=== PATIENT | male | born 1985 | race Caucasian/White ===

== ENCOUNTER 2020-10-15 06:03 | Emergency (ER) | payer OTHER, SELFPAY ==
--- NOTE | ~2020-10-15 | XR_ITS ---
EXAMINATION: XR abdomen/kub 1V DATE: 10/15/2020 07:22 INDICATION: Right flank pain. TECHNIQUE: A supine view of the abdomen on 2 radiographs was obtained. COMPARISON: CT abdomen and pelvis 10/15/2020 FINDINGS: There are no dilated loops of bowel. There is a 2 mm stone in right kidney. There is a 6 mm stone in proximal right ureter. IMPRESSION: 1. 6 mm stone in proximal right ureter. 2. 2 mm stone in right kidney. Reviewed, dictated and finalized at location A. F STRATEGY OFFICER
--- NOTE | ~2020-10-15 | CT_ITS ---
EXAMINATION: CT abdomen pelvis wo con DATE: 10/15/2020 07:16 INDICATION: Flank pain. TECHNIQUE: Computed tomography (CT) of the abdomen and pelvis was performed without intravenous contr ast. Automated exposure control and iterative reconstruction technique were employed. The dose-length product was 1436.19 mGy-cm. COMPARISON: CT abdomen and pelvis 08/13/2014 FINDINGS: The visualized portions of the lung bases demonstrate minimal atelectasis. No pleural effus ion. The heart size is normal. No pericardial effusion. There is diffuse hepatic steatosis. The gallb ladder, spleen, pancreas, adrenal glands, and left kidney are normal. There is a 2 mm stone in right kidney. There is moderate hydronephrosis. There is a 6 mm stone in proximal right ureter. There are n o dilated loops of bowel. There is diverticulosis of the colon without evidence of diverticulitis. Th e appendix is normal. There are no pathologically enlarged lymph nodes. There is no free intraperiton eal fluid. There is a small supraumbilical ventral hernia containing fat. There is a small umbilical hernia containing fat. There is mild thoracal lumbar spondylosis. Lumbar dextrocurvature is noted. IMPRESSION: 1. 6 mm stone in proximal right ureter with mild right hydronephrosis. 2. 2 mm nonobstructing right kidney stone. 3. Diffuse hepatic steatosis. 4. Small umbilical and supraumbilical ventral hernias containing fat. Reviewed, dictated and finalized at location A. OGY PROFESSOR
[2020-10-15 06:07] VITALS: BP 159/113; PULSE 80; RESP 18; TEMP 36.1; O2SAT 99
[2020-10-15 06:38] LABS: Basophils Absolute Auto 0.1 K/mm3 (0.0-0.1); Basophils Percent Auto 0.7 % (0.2-1.2); Eosinophils Absolute Auto 0.1 K/mm3 (0-0.3); Eosinophils Percent Auto 0.9 % (0-4.4); Hematocrit 44.2 % (42.0-52.0); Hemoglobin 14.9 g/dL (14.0-18.0); Immature Granulocyte Absolute 0.04 K/mm3 (0.00-0.031); Immature Granulocyte Percent A 0.4 % (0-0.5); Lymphocytes Absolute Auto 2.95 K/mm3 (0.9-3.2); Lymphocytes Percent Auto 29.6 % (18.3-44.2); Mean Corpuscular HGB Conc 33.7 g/dl (32-36); Mean Corpuscular Hemoglobin 29.5 pg (26-34); Mean Corpuscular Volume 87.5 fl (80-100); Mean Platelet Volume 9.5 fl (7.4-10.4); Monocytes Absolute Auto 0.5 K/mm3 (0.1-0.6); Monocytes Percent Auto 5.1 % (2.6-8.5); Neutrophils Absolute Auto 6.3 K/mm3 (1.3-6.7); Neutrophils Percent Auto 63.3 % (45.5-73.1); Platelet Count Result 370 k/mm3 (150-375); Red Blood Count 5.05 M/mm3 (4.6-6.20); Red Cell Distribution Width 12.5 % (11.5-14.5)
--- NOTE | 2020-10-15 06:45 | ED.GENADULT ---
HPI - General Adult General Chief complaint: Urogenital-Male <Yoav Toribio MD - Last Filed: 10/15/20 06:55> Stated complaint: kidney stone <Yoav Toribio MD - Last Filed: 10/15/20 06:55> Time Seen by Provider: 10/15/20 06:44 <Yoav Toribio MD - Last Filed: 10/15/20 06:55> History of Present Illness HPI narrative: Patient is a 35-year-old gentleman who presents the emergency department with chief complaint of flank pain. The patient states that last night he started having aching in the right flank area states it radiates around to his right groin area. The patient states he had kidney stones before in the past and this feels fairly similar to that he attempted taking some ibuprofen and states he had significant relief of the discomfort with that but noticed he started having some hematuria and his was concerned that he may be a little jaundice and he decided to come to the emergency department for further evaluation. Patient reports he has some mild nausea with this but has not actually vomited reports the pain has significantly improved since he is arrived to the emergency department. <Yoav Toribio MD - Last Filed: 10/15/20 06:55> Related Data Allergies/adverse reactions: Allergies Allergy/AdvReac Type Severity Reaction Status Date / Time hydrocodone Allergy Mild Itching Verified 03/30/19 12:06 <Yoav Toribio MD - Last Filed: 10/15/20 06:55> Review of Systems Review of Systems: Narrative: A 10 system review of systems was completed on the patient and is negative except for what is stated in the HPI. Nursing and ancillary documentation was reviewed. <Yoav Toribio MD - Last Filed: 10/15/20 06:55> PMFSH Past Medical History Medical History: Medical History (Updated 10/15/20 @ 09:02 by Maryann Cornejo MD) Kidney stone <Yoav Toribio MD - Last Filed: 10/15/20 06:55> Surgical History Surgical History: Surgical History (Updated 10/15/20 @ 07:53 by Maryann Cornejo MD) H/O inguinal hernia repair <Yoav Toribio MD - Last Filed: 10/15/20 06:55> Family History Family History: Family History (Updated 03/18/19 @ 13:07 by DOCTOR UNKNOWN) Other Hypertension <Yoav Toribio MD - Last Filed: 10/15/20 06:55> Social History Social History: Social History Smoking status: Current every day smoker Alcohol intake: current <Yoav Toribio MD - Last Filed: 10/15/20 06:55> Comments Past medical history is significant for anxiety past surgical history significant for a inguinal hernia repair with mesh <Yoav Toribio MD - Last Filed: 10/15/20 06:55> Exam Narrative: Exam Narrative: GENERAL: Well-appearing, well-nourished, and in no acute distress. HEAD: Normocephalic, atraumatic. EYES: PERRLA and EOMI. ENT: Nares clear, no rhinorrhea or epistaxis. Mucous membranes moist. NECK: Supple. CHEST: Clear to auscultation. No respiratory distress. HEART: Regular rate and rhythm. No murmur heard. Normal peripheral pulses. ABDOMEN: Soft, nontender, nondistended, normal active bowel sounds. EXTREMITIES: Normal range of motion. No edema. SKIN: Warm, dry, no rash. NEURO: No focal deficits. Alert and oriented x3. PSYCH: Normal mood and affect. <Yoav Toribio MD - Last Filed: 10/15/20 06:55> Course Course Emergency Course: Currently we are waiting on the results of testing I will be signing out care to the day provider <Yoav Toribio MD - Last Filed: 10/15/20 06:55> Reevaluation(s) Reevaluation #1: Patient reports he feels better. His pain is 3/10 and he declines the need for pain medication. He states his urine is now clearing. <Maryann Cornejo MD - Last Filed: 10/15/20 17:52> Date: 10/15/20 <Maryann Cornejo MD - Last Filed:
[2020-10-15] MEDS: SODIUM CHLORIDE 0.9% IV 1,000 ML 999 ML IV CONT (06:50)
[2020-10-15] MEDS: ONDANSETRON INJ 4 MG/2 ML VIAL IV PUSH (06:50)
[2020-10-15 06:54] LABS: Anion Gap 9 mmol/L (8-16); Blood Urea Nitrogen 17 mg/dL (9-20); Calcium 9.9 mg/dL (8.4-10.2); Carbon Dioxide 28 mmol/L (22-30); Chloride 101 mmol/L (98-107); Estimated Glomerular Filt Rate > 60; Glucose 144 mg/dL (75-110); Potassium 4.1 mmol/L (3.4-5.0); Sodium 138 mmol/L (137-145)
[2020-10-15 06:55] LABS: Add Urine Microscopic? YES; Appearance Urine Cloudy (Clear); Bacteria Urine Trace /hpf; Bilirubin Urine Negative (Negative); Blood Urine 3+ (Negative); Glucose Urine UA Negative (Negative); Ketones Urine Negative (Negative); Leukocyte Esterase Ur Trace LEU/UL (Negative); Mucus Urine Heavy /lpf; Nitrate Urine Negative (Negative); Protein Urine 2+ mg/dL (Negative); RBC Urine >75 /hpf (0-2); Specific Grav Ur 1.028 (1.001-1.035); Urobilinogen Urine Negative mg/dL (<2.0); WBC Urine 21-30 /hpf
[2020-10-15 07:04] LABS: Color Urine Amber (Yellow)
[2020-10-15 07:13] LABS: Alanine Aminotransferase 38 U/L (4-50); Albumin Level 4.5 g/dL (3.5-5.1); Alkaline Phosphatase 80 U/L (38-126); Aspartate Amino Transferase 32 U/L (17-59); Bilirubin,Total 0.4 mg/dL (0.2-1.3)
[2020-10-15] MEDS: TAMSULOSIN HCL 0.4 MG CAPSULE PO (09:04)
[2020-10-15 09:51] VITALS: BP 142/80; PULSE 82; RESP 12; O2SAT 99
== END 2020-10-15 09:53 | disposition home or self-care (01) ==
PROVIDERS: Emergency Medicine; Emergency Provider General Practice
DX: N13.2 Hydronephrosis with renal and ureteral calculous obstruction (principal); F17.200 Nicotine dependence, unspecified, uncomplicated; Z87.442 Personal history of urinary calculi; K43.9 Ventral hernia without obstruction or gangrene; K76.0 Fatty (change of) liver, not elsewhere classified
CPT/HCPCS: 36415; 74018; 74176; 80048; 80076; 81001; 85025; 87086; 96361; 96365; 96375; 99284; A9270; J0696; J2405; J7030

== ENCOUNTER 2020-10-17 16:02 | Outpatient (CLI) | payer OTHER, SELFPAY ==
--- NOTE | ~2020-10-17 | XR_ITS ---
XR abdomen/kub 1V 10/17/2020 16:24 Indication: Right ureteral stone Procedure: KUB Comparison: 10/15/2020 Findings: Stable 6 mm right ureteral stone at the L3 level. Bowel gas pattern nonobstructive. Moderat e colonic fecal loading. No acute osseous abnormality. Impression: 1: Stable position of 6 mm right proximal ureteral stone at the L3 level. Reviewed, dictated and finalized at location A. HOUSE HANDLER Impression: 1: Stable position of 6 mm right proximal ureteral stone at the L3 level.
== END 2020-10-17 16:03 | disposition home or self-care (01) ==
PROVIDERS: Visit Provider Urology
DX: N20.1 Calculus of ureter (principal)
CPT/HCPCS: 74018

== ENCOUNTER 2022-09-25 09:17 | Emergency (ER) | payer OTHER, SELFPAY ==
--- NOTE | ~2022-09-25 | XR_ITS ---
EXAMINATION: XR chest 2V 09/25/2022 10:13 INDICATION: Left-sided chest pain PROCEDURE: 2 view chest COMPARISON: No prior studies for comparison. FINDINGS: There is left basilar atelectasis. No focal pneumonia or edema. The cardiomediastinal silh ouette is within normal limits. There are no pleural effusions. There is no pneumothorax suspected. IMPRESSION: 1: Subsegmental left basilar atelectasis. Reviewed, dictated and finalized at location A. S POURER
[2022-09-25 09:19] VITALS: BP 153/73; PULSE 72; RESP 16; TEMP 36.5; O2SAT 100
--- NOTE | 2022-09-25 09:19 | ECG_ITS ---
Measurements Intervals [place] Rate: 69 P: 32 LA: 112 QRS: 50 QRSD: 88 T: 57 QT: 367 QTc: 395 Interpretive Statements SINUS RHYTHM WITH SHORT LA INTERVAL BORDERLINE ECG NO PREVIOUS ECG AVAILABLE FOR COMPARISON Electronically Signed On 09-25-2022 9:32:14 [employer] by Tim Hernandez D.O.
[2022-09-25 09:38] LABS: Basophils Absolute Auto 0.1 K/mm3 (0.0-0.1); Basophils Percent Auto 0.6 % (0.2-1.2); Eosinophils Absolute Auto 0.1 K/mm3 (0-0.3); Eosinophils Percent Auto 0.6 % (0-4.4); Hemoglobin 15.3 g/dL (14.0-18.0); Immature Granulocyte Absolute 0.03 K/mm3 (0.00-0.031); Immature Granulocyte Percent A 0.4 % (0-0.5); Lymphocytes Absolute Auto 2.01 K/mm3 (0.9-3.2); Lymphocytes Percent Auto 24.3 % (18.3-44.2); Mean Corpuscular HGB Conc 34.8 g/dl (32-36); Mean Corpuscular Hemoglobin 30.5 pg (26-34); Mean Corpuscular Volume 87.8 fl (80-100); Mean Platelet Volume 9.1 fl (7.4-10.4); Monocytes Absolute Auto 0.4 K/mm3 (0.1-0.6); Monocytes Percent Auto 4.8 % (2.6-8.5); Neutrophils Absolute Auto 5.7 K/mm3 (1.3-6.7); Neutrophils Percent Auto 69.3 % (45.5-73.1); Platelet Count Result 351 k/mm3 (150-375); Red Blood Count 5.01 M/mm3 (4.6-6.20); Red Cell Distribution Width 12.9 % (11.5-14.5); White Blood Count 8.3 K/mm3 (4.5-10.0)
[2022-09-25 09:50] LABS: Alanine Aminotransferase 39 U/L (6-50); Alkaline Phosphatase 70 U/L (38-126); Anion Gap 8 mmol/L (8-16); Aspartate Amino Transferase 29 U/L (17-59); Bilirubin,Total 0.6 mg/dL (0.2-1.3); Blood Urea Nitrogen 12 mg/dL (9-20); Calcium 9.4 mg/dL (8.4-10.2); Carbon Dioxide 22 mmol/L (22-30); Chloride 105 mmol/L (98-107); Estimated CRCL calculation 175 ml/min; Estimated Glomerular Filt Rate > 60; Glucose 114 mg/dL (65-110); Lipase 282 U/L (23-300); Potassium 4.1 mmol/L (3.4-5.0); Sodium 135 mmol/L (137-145)
[2022-09-25 09:52] LABS: Partial Thromboplastin Time 29.8 SECONDS (22.3-36.8)
[2022-09-25 10:01] LABS: Troponin I < 0.012 ng/mL (0.000-0.034)
[2022-09-25 12:22] VITALS: BP 134/77; PULSE 59; TEMP 36.4; O2SAT 100
--- NOTE | 2022-09-25 13:00 | ED.CHESTPAIN ---
HPI - Chest Pain General Chief Complaint: Chest Pain Stated Complaint: CP Time Seen by Provider: 09/25/22 12:52 History of Present Illness HPI narrative: Pt presents with left sided chest pain onset 0730 this morning when on floor playing with daughter. Pt denies SOB or leg pain and has no recentl surgeries or long trips. Pt says the pain got worse for awhile and then has improved and is now just a dull ache and 1/10. It was 8-9/10 at worst. Pt denies cough or fever or SOB. Related Data Allergies Allergy/AdvReac Type Severity Reaction Status Date / Time hydrocodone Allergy Mild Itching Verified 03/30/19 12:06 Review of Systems Review of Systems: All systems reviewed & are unremarkable except as noted in HPI and below Cardiovascular: Cardiovascular: Reports as per HPI and Reports chest pain Respiratory: Respiratory: Reports as per HPI PMFSH Past Medical History Medical History (Updated 09/25/22 @ 13:41 by Gayle Raygoza III, DO) Kidney stone Surgical History Surgical History (Updated 10/15/20 @ 07:53 by Maryann Cornejo MD) H/O inguinal hernia repair Family History Family History (Updated 03/18/19 @ 13:07 by DOCTOR UNKNOWN) Other Hypertension Social History Social History Smoking status: Current every day smoker Alcohol intake: current Exam Const: General: healthy appearing and no acute distress Nutritional Appearance: well nourished Orientation/consciousness: patient oriented x3 Limitations: no limitations Eyes: Conjunctivae: conjunctivae normal EOM: EOMs intact bilaterally Neck: Neck: normal visual inspection and no lymphadenopathy Chest: Chest palpation & inspection: tenderness (tender left lower anterolateral chest to palpation) Resp: Effort & Inspection: normal respiratory effort Auscultation: clear to auscultation bilaterally Cardio: Rate: regular rate Rhythm: regular rhythm GI: Auscultation: normal bowel sounds Skin: General skin exam: normal color Rashes: no rashes Neuro: General: patient oriented x3, moves all extremities, no meningeal signs and no focal motor deficits Speech: normal speech Extrem: General: normal to inspection and no clubbing, cyanosis or edema Psych: Mental Status: mental status grossly normal Affect: normal affect Attitude: cooperative Course Vital Signs Vital signs: Vital Signs Temperature 97.7 F 09/25/22 09:19 Pulse Rate 72 09/25/22 09:19 Respiratory Rate 16 09/25/22 09:19 Blood Pressure 153/73 H 09/25/22 09:19 Pulse Oximetry 100 09/25/22 09:19 Oxygen Delivery Room Air 09/25/22 09:19 Temperature 97.5 F L 09/25/22 12:22 Pulse Rate 77 09/25/22 14:12 Respiratory Rate 18 09/25/22 14:12 Blood Pressure 138/96 H 09/25/22 14:12 Pulse Oximetry 98 09/25/22 14:12 Oxygen Delivery Room Air 09/25/22 09:19 MDM - Chest Pain Differential Diagnosis Differential diagnosis: Likely atypical chest pain, costochondritis and chest pain Lab Data Result diagrams: 09/25/22 09:30 09/25/22 09:30 Labs: Lab Results 09/25/22 09/25/22 09/25/22 Range/Units 09:30 09:30 09:30 WBC 8.3 (4.5-10.0) K/mm3 RBC 5.01 (4.6-6.20) M/mm3 Hgb 15.3 (14.0-18.0) g/dL Hct 44.0 (42.0-52.0) % MCV 87.8 (80-100) fl MCH 30.5 (26-34) pg MCHC 34.8 (32-36) g/dl RDW 12.9 (11.5-14.5) % Plt Count 351 (150-375) k/mm3 MPV 9.1 (7.4-10.4) fl Immature Gran % (Auto) 0.4 (0-0.5) % Neut % (Auto) 69.3 (45.5-73.1) % Lymph % (Auto) 24.3 (18.3-44.2) % [place] % (Auto) 4.8 (2.6-8.5) % Eos % (Auto) 0.6 (0-4.4) % Baso % (Auto) 0.6 (0.2-1.2) % Lymph # (Auto) 2.01 (0.9-3.2) K/mm3 [place] # (Auto) 0.4 (0.1-0.6) K/mm3 Eos # (Auto) 0.1 (0-0.3) K/mm3 Baso # (Auto) 0.1 (0.0-0.1) K/mm3 Abs Immat Gran (auto) 0.03 (0.00-0.031) K/mm3 Absolute Neuts (auto) 5.7 (1
[2022-09-25 13:13] LABS: Troponin I < 0.012 ng/mL (0.000-0.034)
[2022-09-25 14:12] VITALS: BP 138/96; PULSE 77; RESP 18; O2SAT 98
== END 2022-09-25 14:13 | disposition home or self-care (01) ==
PROVIDERS: Emergency Provider Emergency Medicine; PCP Nurse Practitioner
DX: R07.89 Other chest pain (principal)
CPT/HCPCS: 36415; 71046; 80053; 83690; 84484; 85025; 85610; 85730; 93005; 99284

== ENCOUNTER 2023-01-05 04:57 | Emergency (ER) | payer OTHER, SELFPAY ==
--- NOTE | ~2023-01-05 | CT_ITS ---
EXAMINATION: CT abdomen pelvis w con DATE: 01/05/2023 07:51 INDICATION: Right lower quadrant abdominal pain TECHNIQUE: Computed tomography (CT) of the abdomen and pelvis was performed with 100 mL Omnipaque-350 intravenous contrast. Automated exposure control and iterative reconstruction technique were employe d. The dose-length product was 1472.13 mGy-cm. COMPARISON: None FINDINGS: Bilateral lower lung zones are clear. Heart size is normal. No pericardial or pleural effusion. Diffu se hepatic steatosis with more focal fat at the ligamentum teres and focal sparing along the gallblad cheryle fossa. Gallbladder, spleen, pancreas, bilateral adrenal glands and left kidney are normal. 3 mm n onobstructing stone in an upper pole calyx of the right kidney. There is also a subcentimeter cyst at the lower pole. No ureteral stones or hydronephrosis. Normal appendix. There are few scattered colon ic diverticula without adjacent inflammatory stranding to suggest diverticulitis. No bowel obstructio n. Bladder is normal. No free intraperitoneal gas or fluid. No pathologically enlarged abdominal or p elvic lymphadenopathy. Mild lumbar levocurvature with mild spondylosis. IMPRESSION: 1. No acute intra-abdominal/pelvic process. 2. 3 mm nonobstructing left renal stone. 3. Hepatic steatosis. Reviewed, dictated and finalized at location A. RETE MIXER TRUCK DRIVER
[2023-01-05 05:08] VITALS: BP 175/89; PULSE 85; RESP 17; TEMP 36.7; O2SAT 100
--- NOTE | 2023-01-05 05:59 | ED.GENADULT ---
HPI - General Adult General Chief complaint: Abdominal Pain <Yoav Toribio MD - Last Filed: 01/05/23 06:01> Stated complaint: Dizziness, abd pain, mostly RLQ <Yoav Toribio MD - Last Filed: 01/05/23 06:01> Time Seen by Provider: 01/05/23 05:45 <Yoav Toribio MD - Last Filed: 01/05/23 06:01> History of Present Illness HPI narrative: Patient 37-year-old gentleman who presents emerged department with chief complaint of abdominal pain. Patient reports that about a week ago he started having some generalized malaise and lightheadedness and what he describes as dizziness patient states that about 2 days ago he started having discomfort that started in the periumbilical area and reports it is now localized to the right lower quadrant. The patient reports that he was concerned that he may have appendicitis and decided to come to the emergency department for evaluation. Patient does report that he had a history of kidney stones but reports that this feels different also reports a history of an abdominal wall hernia and had surgery with mesh placement a few years ago <Yoav Toribio MD - Last Filed: 01/05/23 06:01> Related Data Allergies/adverse reactions: Allergies Allergy/AdvReac Type Severity Reaction Status Date / Time hydrocodone Allergy Mild Itching Verified 01/05/23 05:12 <Yoav Toribio MD - Last Filed: 01/05/23 06:01> Review of Systems Review of Systems: A 10 system review of systems was completed on the patient and is negative except for what is stated in the HPI. Nursing and ancillary documentation was reviewed. <Yoav Toribio MD - Last Filed: 01/05/23 06:01> [facility] Past Medical History Medical History: Medical History (Updated 01/05/23 @ 10:00 by Quinn Aguirre MD) Kidney stone <Yoav Toribio MD - Last Filed: 01/05/23 06:01> Surgical History Surgical History: Surgical History (Updated 10/15/20 @ 07:53 by Maryann Cornejo MD) H/O inguinal hernia repair <Yoav Toribio MD - Last Filed: 01/05/23 06:01> Family History Family History: Family History (Updated 03/18/19 @ 13:07 by DOCTOR UNKNOWN) Other Hypertension <Yoav Toribio MD - Last Filed: 01/05/23 06:01> Social History Social History: Social History Smoking status: Current every day smoker Alcohol intake: current <Yoav Toribio MD - Last Filed: 01/05/23 06:01> Exam Narrative: GENERAL: Well-appearing, well-nourished, and in no acute distress. HEAD: Normocephalic, atraumatic. EYES: PERRLA and EOMI. ENT: Nares clear, no rhinorrhea or epistaxis. Mucous membranes moist. NECK: Supple. CHEST: Clear to auscultation. No respiratory distress. HEART: Regular rate and rhythm. No murmur heard. Normal peripheral pulses. ABDOMEN: Soft, tenderness to palpation in the right lower quadrant, nondistended, normal active bowel sounds. EXTREMITIES: Normal range of motion. No edema. SKIN: Warm, dry, no rash. NEURO: No focal deficits. Alert and oriented x3. PSYCH: Normal mood and affect. <Yoav Toribio MD - Last Filed: 01/05/23 06:01> Course Reevaluation(s) Reevaluation #1: 37-year-old male presenting for evaluation of right lower quadrant pain that started last night. Patient care was signed out to me by Dr. Toribio. At time of signout the CT abdomen pelvis was pending. Patient is afebrile with no leukocytosis. Patient's electrolytes are within normal limits. Patient has a normal lipase and normal lactic acid. Patient was updated on the results of his work-up. Patient was strongly encouraged of close follow-up with his primary care physician. Patient reports he has had longstanding issues with diarrhea and patient was encouraged of follow-up with GI. All question concerns were addressed and patient was comforta
[2023-01-05] MEDS: SODIUM CHLORIDE 0.9% IV 1,000 ML 999 ML IV CONT (06:08)
[2023-01-05] MEDS: ONDANSETRON INJ 4 MG/2 ML VIAL IV PUSH (06:08)
[2023-01-05 06:18] LABS: Basophils Absolute Auto 0.1 K/mm3 (0.0-0.1); Basophils Percent Auto 0.8 % (0.2-1.2); Eosinophils Absolute Auto 0.1 K/mm3 (0-0.3); Eosinophils Percent Auto 1.5 % (0-4.4); Hematocrit 43.3 % (42.0-52.0); Hemoglobin 14.8 g/dL (14.0-18.0); Immature Granulocyte Absolute 0.05 K/mm3 (0.00-0.031); Immature Granulocyte Percent A 0.6 % (0-0.5); Lymphocytes Absolute Auto 2.77 K/mm3 (0.9-3.2); Lymphocytes Percent Auto 35.5 % (18.3-44.2); Mean Corpuscular HGB Conc 34.2 g/dl (32-36); Mean Corpuscular Hemoglobin 30.2 pg (26-34); Mean Corpuscular Volume 88.4 fl (80-100); Mean Platelet Volume 9.9 fl (7.4-10.4); Monocytes Absolute Auto 0.4 K/mm3 (0.1-0.6); Monocytes Percent Auto 4.9 % (2.6-8.5); Neutrophils Absolute Auto 4.4 K/mm3 (1.3-6.7); Neutrophils Percent Auto 56.7 % (45.5-73.1); Platelet Count Result 329 k/mm3 (150-375); Red Cell Distribution Width 12.4 % (11.5-14.5); White Blood Count 7.8 K/mm3 (4.5-10.0)
[2023-01-05 06:28] LABS: Appearance Urine Clear (Clear); Bacteria Urine None Seen /hpf; Bilirubin Urine Negative (Negative); Blood Urine Trace (Negative); Color Urine Yellow (Yellow); Glucose Urine UA Negative (Negative); Ketones Urine Negative (Negative); Leukocyte Esterase Ur Negative LEU/UL (Negative); Nitrate Urine Negative (Negative); Non Pathogenic Casts 0-2; Protein Urine Negative (Negative); RBC Urine 0-2 /hpf (0-2); Specific Grav Ur 1.017 (1.001-1.035); Squamous Epithelial Cell Urine None seen /hpf (Few); Urobilinogen Urine 0.2 mg/dL (<2.0); WBC Urine 0-5 /hpf; pH Urine 6.5 (5.0-9.0)
[2023-01-05 06:51] LABS: Add Urine Microscopic? YES
[2023-01-05 06:54] LABS: Influenza A QL RT-PCR Negative (Negative); Influenza B QL RT-PCR Negative (Negative); SARS-CoV-2 RNA PCR Negative
[2023-01-05 07:43] LABS: Estimated CRCL calculation 155 ml/min; Estimated Glomerular Filt Rate > 60
[2023-01-05 07:47] LABS: Lactic Acid Reflex 0.8 mmol/L (0.7-2.0)
[2023-01-05 07:48] LABS: Alanine Aminotransferase 37 U/L (6-50); Albumin Level 4.6 g/dL (3.5-5.1); Alkaline Phosphatase 63 U/L (38-126); Anion Gap 5 mmol/L (8-16); Aspartate Amino Transferase 26 U/L (17-59); Bilirubin,Total 0.6 mg/dL (0.2-1.3); Blood Urea Nitrogen 14 mg/dL (9-20); Calcium 9.2 mg/dL (8.4-10.2); Carbon Dioxide 28 mmol/L (22-30); Chloride 107 mmol/L (98-107); Estimated CRCL calculation 176 ml/min; Estimated Glomerular Filt Rate > 60; Glucose 116 mg/dL (65-110); Lipase 232 U/L (23-300); Potassium 4.4 mmol/L (3.4-5.0); Sodium 140 mmol/L (137-145)
[2023-01-05 07:53] VITALS: BP 130/80; PULSE 76; RESP 16; O2SAT 99
[2023-01-05 09:18] VITALS: BP 132/76; PULSE 68; RESP 16; O2SAT 100
[2023-01-05 10:08] VITALS: BP 134/78; PULSE 60; RESP 16; O2SAT 100
== END 2023-01-05 10:10 | disposition home or self-care (01) ==
PROVIDERS: Emergency Provider Emergency Medicine; PCP Nurse Practitioner
DX: R19.7 Diarrhea, unspecified (principal); R10.9 Unspecified abdominal pain; Z20.822 Contact with and (suspected) exposure to COVID-19; Z87.442 Personal history of urinary calculi
CPT/HCPCS: 36415; 74177; 80053; 81001; 83605; 83690; 85025; 87636; 96361; 96374; 99282; J2405; J7030; Q9967

== ENCOUNTER 2023-03-04 11:24 | Emergency (ER) | payer OTHER, SELFPAY ==
[2023-03-04 11:28] VITALS: BP 133/80; PULSE 65; RESP 20; TEMP 36.6; O2SAT 100
[2023-03-04 12:10] LABS: Basophils Absolute Auto 0.1 K/mm3 (0.0-0.1); Basophils Percent Auto 0.7 % (0.2-1.2); Eosinophils Percent Auto 0.4 % (0-4.4); Hematocrit 41.1 % (42.0-52.0); Hemoglobin 14.1 g/dL (14.0-18.0); Immature Granulocyte Absolute 0.02 K/mm3 (0.00-0.031); Immature Granulocyte Percent A 0.2 % (0-0.5); Lymphocytes Absolute Auto 2.02 K/mm3 (0.9-3.2); Lymphocytes Percent Auto 25.1 % (18.3-44.2); Mean Corpuscular HGB Conc 34.3 g/dl (32-36); Mean Corpuscular Hemoglobin 30.3 pg (26-34); Mean Corpuscular Volume 88.4 fl (80-100); Mean Platelet Volume 9.7 fl (7.4-10.4); Monocytes Absolute Auto 0.4 K/mm3 (0.1-0.6); Monocytes Percent Auto 5.3 % (2.6-8.5); Neutrophils Absolute Auto 5.5 K/mm3 (1.3-6.7); Neutrophils Percent Auto 68.3 % (45.5-73.1); Platelet Count Result 316 k/mm3 (150-375); Red Blood Count 4.65 M/mm3 (4.6-6.20); Red Cell Distribution Width 12.5 % (11.5-14.5)
[2023-03-04 12:16] VITALS: BP 124/78; PULSE 59; O2SAT 94
[2023-03-04 12:17] LABS: Alanine Aminotransferase 36 U/L (6-50); Albumin Level 4.7 g/dL (3.5-5.1); Alkaline Phosphatase 86 U/L (38-126); Anion Gap 8 mmol/L (8-16); Aspartate Amino Transferase 26 U/L (17-59); Bilirubin,Total 0.8 mg/dL (0.2-1.3); Blood Urea Nitrogen 13 mg/dL (9-20); Calcium 9.3 mg/dL (8.4-10.2); Carbon Dioxide 23 mmol/L (22-30); Chloride 107 mmol/L (98-107); Estimated CRCL calculation 175 ml/min; Estimated Glomerular Filt Rate > 60; Glucose 92 mg/dL (65-110); Lipase 50 U/L (23-300); Potassium 3.8 mmol/L (3.4-5.0); Sodium 138 mmol/L (137-145)
--- NOTE | 2023-03-04 12:30 | ED.ABDPAIN ---
HPI - Abdominal Pain General Chief Complaint: Abdominal Pain Stated Complaint: ABD PAIN Time Seen by Provider: 03/04/23 12:01 History of Present Illness HPI narrative: Patient is a 37-year-old male presenting with several months of abdominal pain. Patient states that he has been suffering from left upper quadrant pain for the last several months. States that his PCP started him on omeprazole several weeks ago. States that he has had to CT scans which have been normal. States that his PCP has ordered other outpatient imaging that has yet to be done. States that he has been trying to get an appointment with gastroenterology. States that today his pain went to a 7 out of 10 so his PCP advised to come to the ER. States that he has been taking ibuprofen daily. Denies nausea or vomiting, diarrhea, melena, hematochezia, hematemesis. Denies chest pain, shortness of breath, fevers, dysuria. Related Data Allergies Allergy/AdvReac Type Severity Reaction Status Date / Time hydrocodone Allergy Mild Itching Verified 01/05/23 05:12 Review of Systems Review of Systems: All systems reviewed & are unremarkable except as noted in HPI and below PMFSH Past Medical History Medical History Kidney stone Surgical History Surgical History H/O inguinal hernia repair Family History Family History Other Hypertension Social History Social History Smoking status: Current every day smoker Alcohol intake: current Exam Narrative: GENERAL: Well-appearing, well-nourished, and in no acute distress. HEAD: Normocephalic, atraumatic. EYES: PERRLA and EOMI. ENT: Nares clear, no rhinorrhea or epistaxis. Mucous membranes moist. NECK: Supple. CHEST: Clear to auscultation. No respiratory distress. HEART: Regular rate and rhythm. Normal peripheral pulses. ABDOMEN: Soft, mildly tender in the left upper quadrant without guarding or rebound EXTREMITIES: Normal range of motion. No edema. SKIN: Warm, dry, no rash. NEURO: No focal deficits. Alert and oriented x3. PSYCH: Normal mood and affect. Course Vital Signs Vital signs: Vital Signs Temperature 97.8 F 03/04/23 11:28 Pulse Rate 65 03/04/23 11:28 Respiratory Rate 20 03/04/23 11:28 Blood Pressure 133/80 03/04/23 11:28 Pulse Oximetry 100 03/04/23 11:28 Oxygen Delivery Room Air 03/04/23 11:28 Temperature 97.8 F 03/04/23 11:28 Pulse Rate 47 L 03/04/23 14:01 Respiratory Rate 20 03/04/23 11:28 Blood Pressure 117/76 03/04/23 14:01 Pulse Oximetry 99 03/04/23 14:01 Oxygen Delivery Room Air 03/04/23 11:28 MDM - Abdominal Pain MDM Narrative Medical decision making narrative: Patient is a 37-year-old male presenting with several months of left upper quadrant pain. Vitals within normal limits. Patient is nontoxic and in no acute distress. Exam is remarkable for the above. Abdomen is soft and benign. He is mildly tender in the left upper quadrant. It appears he had CT scan for similar abdominal pain here couple of months ago. CT scan at that time was unremarkable. Patient states that he has since had an outpatient scan as well that was normal. Do not feel that additional CT is warranted at this time given the unchanged pain and his young age. Blood work is unremarkable. Patient given IV Pepcid and a GI cocktail. Concern for an ulcer given his daily NSAID use and the persistence of left upper quadrant pain. On reevaluation, the patient states that his pain has improved. States that it is down to a 2. Feel he is safe for outpatient management. Advised that he continue taking his omeprazole. Advised that he follow-up with his PCP as well as gastroenterology. We will provide the number for one of our GI doctors. Appropr
[2023-03-04] MEDS: BELLADONNA ALK/PHENOB ELIX 10 ML, MAG HYDROX/ALUMINUM HYD/SIMETH 30 ML, LIDOCAINE HCL 2... PO (12:33)
[2023-03-04] MEDS: FAMOTIDINE 20 MG/2 ML VIAL IV PUSH (12:35)
[2023-03-04] MEDS: SODIUM CHLORIDE 0.9% IV 1,000 ML 999 ML IV CONT (12:35)
[2023-03-04 12:47] VITALS: BP 121/89; PULSE 59; O2SAT 97
[2023-03-04 13:46] VITALS: BP 122/89; PULSE 46; O2SAT 100
[2023-03-04 14:01] VITALS: BP 117/76; PULSE 47; O2SAT 99
[2023-03-04 14:03] LABS: Appearance Urine Clear (Clear); Bilirubin Urine Negative (Negative); Blood Urine Negative (Negative); Color Urine Yellow (Yellow); Glucose Urine UA Negative (Negative); Ketones Urine Negative (Negative); Leukocyte Esterase Ur Negative LEU/UL (Negative); Nitrate Urine Negative (Negative); Protein Urine Negative (Negative); Specific Grav Ur 1.018 (1.001-1.035); Urobilinogen Urine 0.2 mg/dL (<2.0)
[2023-03-04 14:12] LABS: Add Urine Microscopic? NO
== END 2023-03-04 14:21 | disposition home or self-care (01) ==
PROVIDERS: Preventive Medicine Aerospace Medicine; Emergency Provider Emergency Medicine; PCP Nurse Practitioner
DX: R10.12 Left upper quadrant pain (principal); Z87.442 Personal history of urinary calculi
CPT/HCPCS: 36415; 80053; 81003; 83690; 85025; 96361; 96374; 99284; A9270; J7030

== ENCOUNTER 2023-03-08 00:33 | Emergency (ER) | payer OTHER, SELFPAY ==
--- NOTE | ~2023-03-08 | CT_ITS ---
Non-contrast CT scan of the Abdomen and Pelvis Clinical indication: Flank pain Technique: 2.5 mm axial scans were obtained through the abdomen and pelvis without intravenous or or al contrast. Dose reduction technique was used on this scan by utilizing automated exposure control a nd iterative reconstruction technique. The dose-length product (DLP) was 600.04 mGy-cm. COMPARISON: 01/05/2023 Findings: Images through the lung bases reveal no abnormalities. There is a punctate stone at the left UVJ, with mild left hydroureteronephrosis. There is a 3 mm nono bstructing right renal stone. No right ureteral stone or right hydronephrosis. The liver, spleen, pancreas, gallbladder, and adrenals appear normal. There is no aortic aneurysm. There is no evidence of bowel obstruction. Normal appendix. Images through the pelvis were performed. There is no evidence of ascites or lymphadenopathy. Urinary bladder otherwise unremarkable. No pelvic mass seen. Impression: Punctate left UVJ stone resulting in mild left hydroureteronephrosis. 3 mm nonobstructing right renal stone. Reviewed, dictated and finalized at [facility]. Impression: Punctate left UVJ stone resulting in mild left hydroureteronephrosis. 3 mm nonobstructing right renal stone.
[2023-03-08 00:49] VITALS: BP 140/96; PULSE 70; RESP 20; TEMP 36.6; O2SAT 100
[2023-03-08 01:47] LABS: Appearance Urine Clear (Clear); Basophils Absolute Auto 0.1 K/mm3 (0.0-0.1); Basophils Percent Auto 0.6 % (0.2-1.2); Bilirubin Urine 1+ (Negative); Blood Urine 3+ (Negative); Color Urine Yellow (Yellow); Eosinophils Absolute Auto 0.1 K/mm3 (0-0.3); Eosinophils Percent Auto 0.7 % (0-4.4); Glucose Urine UA Negative (Negative); Hematocrit 40.1 % (42.0-52.0); Hemoglobin 14.2 g/dL (14.0-18.0); Immature Granulocyte Absolute 0.06 K/mm3 (0.00-0.031); Immature Granulocyte Percent A 0.4 % (0-0.5); Ketones Urine 2+ mg/dL (Negative); Leukocyte Esterase Ur Trace LEU/UL (Negative); Lymphocytes Percent Auto 16.8 % (18.3-44.2); Mean Corpuscular HGB Conc 35.4 g/dl (32-36); Mean Corpuscular Hemoglobin 30.9 pg (26-34); Mean Corpuscular Volume 87.2 fl (80-100); Mean Platelet Volume 9.8 fl (7.4-10.4); Monocytes Absolute Auto 0.6 K/mm3 (0.1-0.6); Monocytes Percent Auto 4.2 % (2.6-8.5); Neutrophils Absolute Auto 11.1 K/mm3 (1.3-6.7); Neutrophils Percent Auto 77.3 % (45.5-73.1); Nitrate Urine Negative (Negative); Platelet Count Result 328 k/mm3 (150-375); Protein Urine 1+ mg/dL (Negative); Red Cell Distribution Width 12.6 % (11.5-14.5); Urobilinogen Urine 0.2 mg/dL (<2.0); White Blood Count 14.3 K/mm3 (4.5-10.0)
[2023-03-08 01:51] LABS: Bacteria Urine None Seen /hpf; Non Pathogenic Casts 0-2; RBC Urine >100 /hpf (0-2); Squamous Epithelial Cell Urine None seen /hpf (Few)
[2023-03-08] MEDS: ONDANSETRON INJ 4 MG/2 ML VIAL IV PUSH (01:52)
[2023-03-08] MEDS: SODIUM CHLORIDE 0.9% IV 2,000 ML 999 ML IV CONT (01:52)
[2023-03-08 01:56] LABS: Alanine Aminotransferase 30 U/L (6-50); Albumin Level 4.8 g/dL (3.5-5.1); Alkaline Phosphatase 83 U/L (38-126); Anion Gap 9 mmol/L (8-16); Aspartate Amino Transferase 26 U/L (17-59); Bilirubin,Total 0.6 mg/dL (0.2-1.3); Blood Urea Nitrogen 21 mg/dL (9-20); Calcium 9.7 mg/dL (8.4-10.2); Carbon Dioxide 23 mmol/L (22-30); Chloride 105 mmol/L (98-107); Estimated CRCL calculation 134 ml/min; Estimated Glomerular Filt Rate > 60; Glucose 144 mg/dL (65-110); Potassium 3.4 mmol/L (3.4-5.0); Sodium 137 mmol/L (137-145)
[2023-03-08] MEDS: HYDROmorphone HCL INJ (*CRX) 1 MG/ML SYR 0.5 MG IV PUSH (01:57)
[2023-03-08 02:01] LABS: Add Urine Microscopic? YES
[2023-03-08 03:22] VITALS: BP 119/73; PULSE 62; RESP 18; O2SAT 97
--- NOTE | 2023-03-08 04:01 | ED.GENADULT ---
HPI - General Adult General Chief complaint: Abdominal Pain Stated complaint: abd pain, hands locking up Time Seen by Provider: 03/08/23 01:40 History of Present Illness HPI narrative: this is a 37-year-old male presenting ED with chief complaint of right flank pain. Patient said that he developed a shooting pain in his left flank that wraps around into his groin. He has 10 out 10 intensity, comes and goes feels like previous kidney stones that he has has. Took Motrin but had too much vomiting to keep down. He denies urinary symptoms. He has had 6-7 kidney stones. Related Data Allergies Allergy/AdvReac Type Severity Reaction Status Date / Time hydrocodone Allergy Mild Itching Verified 01/05/23 05:12 [facility] Past Medical History Medical History Kidney stone Surgical History Surgical History H/O inguinal hernia repair Family History Family History Other Hypertension Social History Social History Smoking status: Current every day smoker Alcohol intake: current Exam Narrative: APPEARANCE: patient is actively vomiting Head: atraumatic. EYES: EOMI, NOSE: Atraumatic NECK: Trachea midline RESPIRATORY: No increased rate of breathing, CTAB CARDIOVASCULAR: RRR, ABDOMINAL: soft nontender no guarding rebound, left CVA tenderness MUSCULOSKELETAl: No obvious deformities NEURO: Alert. Moving 4/4 extremities SKIN:: Warm, dry. Normal color PSYCHIATRIC: Normal affect Course Vital Signs Vital signs: Vital Signs Temperature 97.8 F 03/08/23 00:49 Pulse Rate 70 03/08/23 00:49 Respiratory Rate 20 03/08/23 00:49 Blood Pressure 140/96 H 03/08/23 00:49 Pulse Oximetry 100 03/08/23 00:49 Oxygen Delivery Room Air 03/08/23 00:49 Temperature 97.8 F 03/08/23 00:49 Pulse Rate 62 03/08/23 03:22 Respiratory Rate 18 03/08/23 03:22 Blood Pressure 119/73 03/08/23 03:22 Pulse Oximetry 97 03/08/23 03:22 Oxygen Delivery Room Air 03/08/23 00:49 Medical Decision Making [facility] Narrative Medical decision making narrative: -Presentation: 37-year-old male history kidney stones presenting with flank pain and vomiting. -DDX includes but is not limited to: Kidney stone, gastritis, MSK pain, Viral syndrome -Co-morbidities complicating care: history of kidney stones, gastritis -Social determinants of health: patient works at [email or web address] with h -External Chart Review: review of ER note from March 04. -Hx from independent Sources: None -Discussion of Management/Consultants: none -Independent interpretation of studies: white blood cell count was elevated 14.1. Metabolic panel within normal limits. UA showed greater than 100 red blood cells, trace leuk esterase 6-[address] abdomen showed a 2 mm calculus at the left UVJ with mild left hydronephrosis and hydroureter. Nonobstructing 5 mm right renal calculus. Dx tests considered but not ordered: None -Procedures: none -Interventions: Dilaudid, Zofran, normal saline -Shared decision making / Disposition: On re-evaluation patient resting comfortably. Patient will be discharged with symptomatic treatment given Urology follow-up for his kidney stone. -RX Motrin, Tylenol, oxycodone, Zofran, Keflex Vital Signs Vital Signs: Vital Signs Temperature 97.8 F 03/08/23 00:49 Pulse Rate 70 03/08/23 00:49 Respiratory Rate 20 03/08/23 00:49 Blood Pressure 140/96 H 03/08/23 00:49 Pulse Oximetry 100 03/08/23 00:49 Oxygen Delivery Room Air 03/08/23 00:49 Temperature 97.8 F 03/08/23 00:49 Pulse Rate 62 03/08/23 03:22 Respiratory Rate 18 03/08/23 03:22 Blood Pressure 119/73 03/08/23 03:22 Pulse Oximetry 97 03/08/23 03:22 Oxygen Delivery Room Air 03/08
== END 2023-03-08 05:40 | disposition home or self-care (01) ==
PROVIDERS: Emergency Provider Emergency Medicine; PCP Nurse Practitioner
DX: N13.2 Hydronephrosis with renal and ureteral calculous obstruction (principal); Z87.442 Personal history of urinary calculi; F17.200 Nicotine dependence, unspecified, uncomplicated
CPT/HCPCS: 36415; 74176; 80053; 81001; 85025; 87086; 96361; 96374; 96375; 99284; J1170; J2405; J7030

== ENCOUNTER 2024-01-27 15:47 | Emergency (ER) | payer OTHER, SELFPAY ==
[2024-01-27 15:48] VITALS: BP 139/90; PULSE 63; RESP 18; TEMP 36.6; O2SAT 99
[2024-01-27 16:18] LABS: Basophils Absolute Auto 0.1 K/mm3 (0.0-0.1); Eosinophils Absolute Auto 0.1 K/mm3 (0-0.3); Eosinophils Percent Auto 0.9 % (0-4.4); Hematocrit 43.9 % (42.0-52.0); Hemoglobin 15.4 g/dL (14.0-18.0); Immature Granulocyte Absolute 0.03 K/mm3 (0.00-0.031); Immature Granulocyte Percent A 0.4 % (0-0.5); Lymphocytes Absolute Auto 2.38 K/mm3 (0.9-3.2); Lymphocytes Percent Auto 35.1 % (18.3-44.2); Mean Corpuscular HGB Conc 35.1 g/dl (32-36); Mean Corpuscular Hemoglobin 31.3 pg (26-34); Mean Corpuscular Volume 89.2 fl (80-100); Mean Platelet Volume 9.4 fl (7.4-10.4); Monocytes Absolute Auto 0.4 K/mm3 (0.1-0.6); Monocytes Percent Auto 5.3 % (2.6-8.5); Neutrophils Absolute Auto 3.9 K/mm3 (1.3-6.7); Neutrophils Percent Auto 57.3 % (45.5-73.1); Platelet Count Result 377 k/mm3 (150-375); Red Blood Count 4.92 M/mm3 (4.6-6.20); Red Cell Distribution Width 12.4 % (11.5-14.5); White Blood Count 6.8 K/mm3 (4.5-10.0)
[2024-01-27 16:23] LABS: Appearance Urine Cloudy (Clear); Bacteria Urine None Seen /hpf; Bilirubin Urine Negative (Negative); Blood Urine Negative (Negative); Color Urine Yellow (Yellow); Glucose Urine UA Trace mg/dL (Negative); Ketones Urine Negative (Negative); Leukocyte Esterase Ur Negative LEU/UL (Negative); Nitrate Urine Negative (Negative); Non Pathogenic Casts 0-2; Protein Urine Negative (Negative); Specific Grav Ur 1.025 (1.001-1.035); Squamous Epithelial Cell Urine None Seen /hpf (Few); WBC Urine 0-5 /hpf (0-3); pH Urine 7.5 (5.0-9.0)
--- NOTE | 2024-01-27 16:27 | PC.NURSE ---
Pt states he has been following with his pmd for his depression. States he has had depression since he was in high school. Pmd thinks he has bipolar depression. States he drinks 5-6 shots of Petron daily. Has been cutting on his legs.
[2024-01-27 16:32] LABS: Ethanol < 10 mg/dL (<10)
[2024-01-27 16:33] LABS: Add Urine Microscopic? YES
[2024-01-27 16:34] LABS: Alanine Aminotransferase 28 U/L (6-50); Albumin Level 4.7 g/dL (3.5-5.1); Alkaline Phosphatase 59 U/L (38-126); Anion Gap 9 mmol/L (4-12); Aspartate Amino Transferase 25 U/L (17-59); Bilirubin,Total 0.7 mg/dL (0.2-1.3); Blood Urea Nitrogen 15 mg/dL (9-20); Calcium 9.8 mg/dL (8.4-10.2); Carbon Dioxide 22 mmol/L (22-30); Chloride 107 mmol/L (98-107); Estimated CRCL calculation 169 ml/min; Estimated Glomerular Filt Rate > 60; Glucose 90 mg/dL (65-110); Potassium 3.8 mmol/L (3.4-5.0); Sodium 138 mmol/L (137-145)
[2024-01-27 16:38] LABS: Amphetamine Screen Urine Negative (Negative); Barbiturate Screen Urine Negative (Negative); Benzodiazepines Screen Urine Negative (Negative); Cannabinoid Screen Urine Positive (Negative); Cocaine Screen Urine Negative (Negative); Methadone Screen Urine Negative (Negative); Opiate Screen Urine Negative (Negative); Phencyclidine Screen Urine Negative (Negative)
[2024-01-27 16:57] LABS: Influenza A QL RT-PCR Negative (Negative); Influenza B QL RT-PCR Negative (Negative); RSV RNA, RT-PCR Negative (Negative); SARS-CoV-2 RNA PCR Negative (Negative)
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
--- NOTE | 2024-01-27 18:36 | PC.NURSE ---
Crisis here to evaluate.
== END 2024-01-27 19:06 | disposition home or self-care (01) ==
PROVIDERS: Emergency Provider Family Medicine; PCP Nurse Practitioner
DX: R45.851 Suicidal ideations (principal); Z11.52 Encounter for screening for COVID-19; F17.200 Nicotine dependence, unspecified, uncomplicated; Z87.442 Personal history of urinary calculi
CPT/HCPCS: 36415; 80053; 80307; 81001; 84443; 85025; 87637; 99284